=== PATIENT | female | born 1950 | race American Indian/Alaskan Native ===

== ENCOUNTER 2016-04-22 16:54 | Emergency (ER) | payer SELFPAY ==
[2016-04-22 19:29] VITALS: BP 159/79
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
[2016-04-22 20:59] LABS: Hematocrit 41.7 % (30.3-42.9); Hemoglobin 13.8 gm/dl (10.1-14.3); Mean Corpuscular HGB Conc 33 % (30-34); Mean Corpuscular Hemoglobin 28 pg (28-32); Mean Corpuscular Volume 85 fl (79-97); Platelet Count 371 K/mm3 (140-440); Red Blood Count 4.93 M/mm3 (3.65-5.03); White Blood Count 6.9 K/mm3 (4.5-11.0)
[2016-04-22 21:17] LABS: Anion Gap 16 mmol/L; BUN/Creatinine Ratio 18.33; Blood Urea Nitrogen 11 mg/dL (7-17); Calcium 9.1 mg/dL (8.4-10.2); Carbon Dioxide 25 mmol/L (22-30); Chloride 106.1 mmol/L (98-107); Glucose 77 mg/dL (65-100); Potassium 4.6 mmol/L (3.6-5.0); Sodium 142 mmol/L (137-145)
[2016-04-22 22:44] LABS: Urine Drugs of Abuse Note Disclamer
[2016-04-22 23:08] LABS: Bacteria,Urine 1+ /HPF (Negative); Bilirubin,Urine NEG (Negative); Blood,Urine NEG (Negative); Ketones,Urine NEG (Negative); Leukocyte Esterase,Urine SM (Negative); Mucus,Urine FEW /HPF; Nitrite,Urine NEG (Negative); Protein,Urine <15 mg/dL mg/dL (Negative); Urobilinogen,Urine < 2.0 mg/dL (<2.0)
== END 2016-04-22 23:33 | disposition home or self-care (01) ==
LOC: ED 16:54
DX: M54.6 Pain in thoracic spine (principal); I10 Essential (primary) hypertension; Z88.5 Allergy status to narcotic agent
CPT/HCPCS: 36415; 80048; 80307; 81001; 85027; 99283

== ENCOUNTER 2020-04-28 00:31 | Emergency (ER) | payer MEDICARE ==
[2020-04-28 01:37] LABS: Basophils # (Auto) 0.1 K/mm3 (0.0-0.1); Eosinophils # (Auto) 0.2 K/mm3 (0.0-0.4); Eosinophils % (Auto) 2.4 % (0.0-4.3); Hematocrit 38.9 % (30.3-42.9); Hemoglobin 12.8 gm/dl (10.1-14.3); Lymphocytes # (Auto) 2.9 K/mm3 (1.2-5.4); Lymphocytes % (Auto) 40.5 % (13.4-35.0); Mean Corpuscular HGB Conc 33 % (30-34); Mean Corpuscular Volume 83 fl (79-97); Monocytes # (Auto) 0.5 K/mm3 (0.0-0.8); Platelet Count 410 K/mm3 (140-440); Red Blood Count 4.67 M/mm3 (3.65-5.03); Red Cell Distribution Width 13.5 % (13.2-15.2)
--- NOTE | 2020-04-28 01:37 | XRay Report ---
CHEST 1 VIEW 04/28/2020 1:30 AM INDICATION / CLINICAL INFORMATION: Chest Pain. COMPARISON: 06/20/2015 FINDINGS: SUPPORT DEVICES: None. HEART / MEDIASTINUM: No significant abnormality. LUNGS / PLEURA: No significant pulmonary or pleural abnormality. No pneumothorax. ADDITIONAL FINDINGS: No significant additional findings. IMPRESSION: 1. No acute findings. Signer Name: Alejandro Redd MD Signed: 04/28/2020 1:33 AM Workstation Name: [id number]
[2020-04-28 01:44] LABS: Blood Urea Nitrogen 15 mg/dL (7-17); Calcium 8.7 mg/dL (8.4-10.2); Hemolysis Index 9
[2020-04-28 01:47] LABS: BUN/Creatinine Ratio 21
--- NOTE | 2020-04-28 04:25 | Cat Scan Report ---
CT HEAD WITHOUT CONTRAST INDICATION / CLINICAL INFORMATION: Pt complains of numbness to face and leg. TECHNIQUE: All CT scans at this location are performed using CT dose reduction for ALARA by means of automated exposure control. COMPARISON: None available. FINDINGS: HEMORRHAGE: None. EXTRA-AXIAL SPACES: Normal in size and morphology for the patient's age. VENTRICULAR SYSTEM: Normal in size and morphology for the patient's age. CEREBRAL PARENCHYMA: No significant abnormality. No acute territorial infarct. MIDLINE SHIFT / HERNIATION: None. CEREBELLUM / BRAINSTEM: No significant abnormality. ORBITS: Normal as visualized. SOFT TISSUES: No significant abnormality. SKULL: No significant abnormality. PARANASAL SINUSES / MASTOID AIR CELLS: Normal as visualized. ADDITIONAL FINDINGS: None. IMPRESSION: 1. No acute intracranial abnormality. Signer Name: Alejandro Redd MD Signed: 04/28/2020 4:21 AM Workstation Name: [id number]
[2020-04-28 06:50] VITALS: BP 150/71
[2020-04-28] MEDS ORDERED: ASPIRIN 325 MG TAB PO ONE (09:03)
--- NOTE | 2020-04-28 09:05 | Emergency Department Report ---
ED General Adult HPI - General Chief complaint: Neuro Symptoms/Deficit Stated complaint: NUMBNESS ON LT SIDE SLIGHT HEADACHE Time Seen by Provider: 04/28/20 08:19 Source: patient Mode of arrival: Ambulatory Limitations: No Limitations - History of Present Illness Initial comments: Patient is a 70-year-old hypertensive female who presents to the emergency department for evaluation of abrupt onset of paresthesias to her left lips, left hand, and left rodriguez all beginning at approximately 6:54 PM last night. Patient denies any headache, denies associated limb weakness, denies any difficulty understanding speech, denies any difficulty speaking or walking. Patient denies visual disturbance or visual symptoms. Patient denies history of hypercholester olemia or diabetes, denies history of stroke. Patient denies chest pain, denies shortness of breath. Severity scale (0 -10): 0 - Related Data Previous Rx's Medication Instructions Recorded Last Taken Type cloNIDine [Catapres] 0.1 mg PO QDAY #30 tablet 09/30/13 06/19/15 22:00 Rx oxyCODONE /ACETAMINOPHEN [Percocet 1 tab PO Q6H PRN #30 tablet 06/23/15 Unknown Rx 5/325 mg] Allergies Allergy/AdvReac Type Severity Reaction Status Date / Time codeine AdvReac Headache Verified 04/21/13 10:31 ED Review of Systems ROS: Stated complaint: NUMBNESS ON LT SIDE SLIGHT HEADACHE Other details as noted in HPI Comment: All other systems reviewed and negative ED Past Medical Hx - Past Medical History Previous Medical History?: Yes Hx Hypertension: Yes (clonidine on hold) Hx Heart Attack/AMI: No Hx Congestive Heart Failure: No Hx Diabetes: No Hx Deep Vein Thrombosis: No Hx Pulmonary Embolism: No Hx Liver Disease: No Hx Renal Disease: No Hx Sickle Cell Disease: No Hx Arthritis: No Hx Headaches / Migraines: No Hx Seizures: No Hx Kidney Stones: No Hx Asthma: No Hx COPD: No Hx Tuberculosis: No Hx Dementia: No Hx HIV: No Additional medical history: States took a water pill before but she tolerated well. - Surgical History Hx Coronary Stent: No Hx Pacemaker: No Hx Internal Defibrillator: No Hx Cholecystectomy: Yes Additional Surgical History: Tubal ligation - Social History Smoking Status: Never Smoker Substance Use Type: None - Medications Home Medications: Home Medications Medication Instructions Recorded Confirmed Last Taken Type cloNIDine [Catapres] 0.1 mg PO QDAY #30 tablet 09/30/13 06/20/15 06/19/15 22:00 Rx oxyCODONE /ACETAMINOPHEN [Percocet 1 tab PO Q6H PRN #30 tablet 06/23/15 Unknown Rx 5/325 mg] ED Physical Exam - General Limitations: No Limitations General appearance: alert, in no apparent distress - Head Head exam: Present: atraumatic, normocephalic - Eye Eye exam: Present: normal appearance - ENT ENT exam: Present: mucous membranes moist - Neck Neck exam: Present: normal inspection - Respiratory Respiratory exam: Present: normal lung sounds bilaterally. Absent: respiratory distress - Cardiovascular Cardiovascular Exam: Present: regular rate, normal rhythm. Absent: systolic murmur, diastolic murmur, rubs, gallop - GI/Abdominal GI/Abdominal exam: Present: soft, normal bowel sounds - Extremities Exam Extremities exam: Present: normal inspection - Back Exam Back exam: Present: normal inspection - Neurological Exam Neurological exam: Present: alert, oriented X3, CN II-XII intact, normal gait, reflexes normal - Expanded Neurological Exam Expanded Patient oriented to: Present: person, place, time Speech: Present: fluid speech Cranial nerves: EOM's Intact: Normal, Tongue Deviation: Normal, Nystagmus: Normal, Facial Sensation: Normal Cerebellar function: Finger to Nose: Normal, Heel to Rodriguez: Normal Upper motor neuron: Jaguar Neglect: Normal, Pronator Drift: Normal, Sensory Extinction: Normal Sensory exam: Upper Extremity Light Touch: Normal, Lower Extremity Light Touch: Normal Motor strength exam: RUE: 5, LUE: 5, RLE: 5, LLE: 5 Best Eye Response ([place]): (4) open spontaneously Best Motor Response (Barron): (6) obeys commands Best Verbal Response ([place]): (5) oriented Barron Total: 15 - Psychiatric Psychiatric exam: Present: normal affect, normal mood - Skin Skin exam: Present: warm, dry, intact, normal color. Absent: rash ED Course Vital Signs 04/28/20 04/28/20 04/28/20 00:51 06:47 08:51 Temperature 99.0 F Pulse Rate 99 H 83 Respiratory 17 16 20 Rate Blood Pressure 186/84 150/71 O2 Sat by Pulse 97 99 Oximetry - Reevaluation(s) Reevaluation #1: 04/28/20 09:37 Patient seen following extended wait in emergency department waiting room with negative CT head, negative EKG, negative lab work. Patient is advised symptoms may be suggestive of posterior stroke, consequently CTA head and neck and neurologic consultation will be obtained. Patient refuses, states she would prefer to follow-up with her primary care physician and have any further tests ordered by him. Patient advised complaint may be time sensitive, cannot exclude large vessel occlusion, explained patient may be candidate for neurologic intervention as she presents greater than 4.5 hours but less than 24 hours after onset of symptoms. Patient aware she may be having ongoing CVA, prefers to sign out AGAINST MEDICAL ADVICE nonetheless. Patient is advised she may have worsening deficit, may have permanent neurologic deficit, undiagnosed neurologic or cardiac disorder. Patient advised definitive diagnosis cannot be made given incomplete work-up, is again advised to remain in the hospital. Patient again refuses, noting her daughter will make her an appointment with primary care doctor. Patient is advised refusal may result in worsening outcome, including but not limited to permanent disability and/or , patient accepts risks and again request to leave the hospital. Patient given aspirin 325 mg p.o. x1 prior to discharge and advised to return to the emergency department at any point for completion of work-up. ED Medical Decision Making - Lab Data Result diagrams: 04/28/20 01:11 04/28/20 01:11 Vital Signs 04/28/20 04/28/20 04/28/20 00:51 06:47 08:51 Temperature 99.0 F Pulse Rate 99 H 83 Respiratory 17 16 20 Rate Blood Pressure 186/84 150/71 O2 Sat by Pulse 97 99 Oximetry Labs 04/28/20 04/28/20 04/28/20 01:11 01:11 03:58 WBC 7.0 RBC 4.67 Hgb 12.8 Hct 38.9 MCV 83 MCH 27 L MCHC 33 RDW 13.5 Plt Count 410 Lymph % (Auto) 40.5 H Barron % (Auto) 7.0 Eos % (Auto) 2.4 Baso % (Auto) 1.0 Lymph # (Auto) 2.9 Barron # (Auto) 0.5 Eos # (Auto) 0.2 Baso # (Auto) 0.1 Seg Neutrophils % 49.1 Seg Neutrophils # 3.5 Sodium 140 Potassium 3.9 Chloride 106.6 Carbon Dioxide 24 Anion Gap 13 BUN 15 Creatinine 0.7 Estimated GFR > 60 BUN/Creatinine Ratio 21 Glucose 106 H Calcium 8.7 Troponin T < 0.010 < 0.010 - EKG Data -: EKG Interpreted by Me (Sinus rhythm at 87, no ST-T changes, normal QRS) - Radiology Data Radiology results: report reviewed Referring Physician: ABBIE JEROME Patient Name: PITO KHAN Date of : 1950 Sex: Female Report Date: 2020-04-28 Report Status: Finalized [facility] [address] [place] [address] Cat Scan Report Signed Patient: PITO KHAN MR#: [id number] 124 : 1950 Acct:[id number] Age/Sex: 70 / F ADM Date: 04/28/20 Loc: ED Attending Dr: Ordering Physician: STEFANIE CONTI Date of Service: 04/28/20 Procedure(s): CT head/brain wo con Accession Number(s): [id number] cc: STEFANIE CONTI CT HEAD WITHOUT CONTRAST INDICATION / CLINICAL INFORMATION: Pt complains of numbness to face and leg. TECHNIQUE: All CT scans at this location are performed using CT dose reduction for ALARA by means of automated exposure control. COMPARISON: None available. FINDINGS: HEMORRHAGE: None. EXTRA-AXIAL SPACES: Normal in size and morphology for the patient's age. VENTRICULAR SYSTEM: Normal in size and morphology for the patient's age. CEREBRAL PARENCHYMA: No significant abnormality. No acute territorial infarct. MIDLINE SHIFT / HERNIATION: None. CEREBELLUM / BRAINSTEM: No significant abnormality. ORBITS: Normal as visualized. SOFT TISSUES: No significant abnormality. SKULL: No significant abnormality. PARANASAL SINUSES / MASTOID AIR CELLS: Normal as visualized. ADDITIONAL FINDINGS: None. IMPRESSION: 1. No acute intracranial abnormality. Signer Name: Alejandro Redd MD Signed: 04/28/2020 4:21 AM Workstation Name: [id number] Transcribed By: Dictated By: Alejandro Redd MD Electronically Authenticated By: Alejandro Redd MD Signed Date/Time: 04/28/20420 DD/ 7 TD/TT: Chest x-ray negative per radiology Critical Care Time: No Critical care attestation.: If time is entered above; I have spent that time in minutes in the direct care of this critically ill patient, excluding procedure time. ED Disposition Clinical Impression: Paresthesias Disposition: DC-07 LEFT AGAINST MED ADVICE Is pt being admited?: No Condition: Stable Instructions: Paresthesia Additional Instructions: Follow-up with primary care doctor immediately as you are leaving the hospital AGAINST MEDICAL ADVICE. Please note you possibly have ongoing neurologic disorder including but not limited to acute stroke which you may benefit from acute therapy and further evaluation including CTA head and neck, MRI brain, carotid ultrasound, and neurologic evaluation, all were discussed with you in person. Please note the risks of refusing further evaluation and admission to the hospital include but are not limited to permanent neurologic deficit, permanent disability, and/or . Please return to the emergency department at any point for further evaluation and to continue ongoing work-up. Referrals: ONEAL MENDOZA MD [Primary Care Provider] - 3-5 Days - Level of Consciousness 1a. Level of Consciousness: alert/keenly responsive - LOC Questions 1b. LOC Questions: answers both correctly - LOC Command 1c. LOC Commands: performs tasks correctly - Best Gaze 2. Best Gaze: normal - Visual 3. Visual: no visual loss - Facial Palsy 4. Facial Palsy: normal symmetrical movement - Motor Arm 5a. Motor Arm Left: no drift 5b. Motor Arm Right: no drift - Motor Leg 6a. Motor Leg Left: no drift 6b. Motor Leg Right: no drift - Limb Ataxia 7. Limb Ataxia: absent - Sensory 8. Sensory: normal - Best Language 9. Best Language: no aphasia - Dysarthria 10. Dysarthria: normal - Extinction and Inattention 11. Extinction/Inattention: no abnormality - Scoring Total Score: 0 Stroke Severity: No Stroke Symptoms
== END 2020-04-28 09:45 | disposition left against medical advice (07) ==
LOC: ED 00:31
DX: R20.2 Paresthesia of skin (principal); I10 Essential (primary) hypertension; Z79.899 Other long term (current) drug therapy; Z98.51 Tubal ligation status; Z90.49 Acquired absence of other specified parts of digestive tract; Z88.6 Allergy status to analgesic agent
CPT/HCPCS: 36415; 70450; 71045; 80048; 84484; 85025; 93005

== ENCOUNTER 2020-07-31 14:22 | Emergency (ER) | payer MEDICARE ==
--- NOTE | 2020-07-31 14:39 | Event Note ---
ED Screening Note Date of service: 07/31/20 Time: 14:38 ED Screening Note: Patient complains of episode of rapid heart beat and dizziness today Denies chest pain or shortness of breath No past heart history per patient No headache This initial assessment/diagnostic orders/clinical plan/treatment(s) is/are subject to change based on patients health status, clinical progression and re- assessment by fellow clinical providers in the ED. Further treatment and workup at subsequent clinical providers discretion. Patient/guardian urged not to elope from the ED as their condition may be serious if not clinically assessed and managed. Initial orders include: Labs EKG chest x-ray
[2020-07-31 14:43] VITALS: BP 178/103
[2020-07-31 15:28] LABS: Basophils % (Auto) 0.8 % (0.0-1.8); Eosinophils # (Auto) 0.1 K/mm3 (0.0-0.4); Hematocrit 43.6 % (30.3-42.9); Hemoglobin 14.2 gm/dl (10.1-14.3); Lymphocytes # (Auto) 1.7 K/mm3 (1.2-5.4); Lymphocytes % (Auto) 30.4 % (13.4-35.0); Mean Corpuscular HGB Conc 33 % (30-34); Mean Corpuscular Volume 85 fl (79-97); Monocytes # (Auto) 0.5 K/mm3 (0.0-0.8); Monocytes % (Auto) 8.5 % (0.0-7.3); Platelet Count 403 K/mm3 (140-440); Red Blood Count 5.12 M/mm3 (3.65-5.03); Red Cell Distribution Width 13.7 % (13.2-15.2)
--- NOTE | 2020-07-31 15:46 | XRay Report ---
CHEST 2 VIEWS INDICATION / CLINICAL INFORMATION: palpitations. COMPARISON: 04/28/2020 FINDINGS: SUPPORT DEVICES: None. HEART / MEDIASTINUM: No significant abnormality. LUNGS / PLEURA: No significant pulmonary or pleural abnormality. No pneumothorax. ADDITIONAL FINDINGS: No significant additional findings. IMPRESSION: 1. No acute findings. Signer Name: Juan Carlos Rodríguez MD Signed: 07/31/2020 3:42 PM Workstation Name: [id number]
[2020-07-31 15:54] LABS: Alanine Aminotransferase 25 units/L (7-56); Blood Urea Nitrogen 8 mg/dL (7-17); Calcium 9.1 mg/dL (8.4-10.2); Hemolysis Index 30
[2020-07-31 15:55] LABS: BUN/Creatinine Ratio 11
[2020-07-31 16:07] LABS: Chol/HDL Ratio 3.06 %; HDL Cholesterol 66 mg/dL (40-59); LDL Cholesterol,Direct 137 mg/dL (50-130)
[2020-07-31 20:05] LABS: Bilirubin,Urine NEG (Negative); Blood,Urine NEG (Negative); Color,Urine Straw (Yellow); Protein,Urine <15 mg/dL mg/dL (Negative)
[2020-07-31 20:13] LABS: Mucus,Urine FEW /HPF
== END 2020-07-31 21:00 | disposition left against medical advice (07) ==
LOC: ED 14:22
DX: R42 Dizziness and giddiness (principal); R00.0 Tachycardia, unspecified; Z53.21 Procedure and treatment not carried out due to patient leaving prior to being seen by health care provider
CPT/HCPCS: 36415; 71046; 80053; 80061; 81001; 84484; 85025; 93005

== ENCOUNTER 2020-10-02 14:26 | Observation (INO) | payer MEDICARE ==
[2020-10-02] MEDS ORDERED: hydrALAZINE 20 MG/1 ML INJ IV ONE (14:50)
[2020-10-02] MEDS ORDERED: SODIUM CHLORIDE 0.9% 500 ML 500 ML IV ONE (14:52)
--- NOTE | 2020-10-02 14:59 | Emergency Department Report ---
HPI - General Chief Complaint: Weakness Time Seen by Provider: 10/02/20 14:41 - HPI HPI: 70-year-old female with history of hypertension brought in by EMS complaining of intermittent episodes of shortness of breath since noon today. The patient states that since noon she has had intermittent episodes where she feels short of breath lasting only seconds at a time. There are no other associated symptoms during these episodes and no preceding symptoms. She denies experiencing any chest pain, headache, vision change, nausea/vomiting, sweating, cough, fever, abdominal pain, dysuria, focal weakness, sensory changes, or any other complaints. According to the EMS report, the patient was found to be profoundly bradycardic with a heart rate in the 40s and hypotensive with blood pressure in the 200s systolic. Patient states that she is compliant with all of her blood pressure medications. At this time she does not feel short of breath and has no other symptoms. ED Past Medical Hx - Past Medical History Hx Hypertension: Yes (clonidine on hold) Hx Heart Attack/AMI: No Hx Congestive Heart Failure: No Hx Diabetes: No Hx Deep Vein Thrombosis: No Hx Pulmonary Embolism: No Hx Liver Disease: No Hx Renal Disease: No Hx Sickle Cell Disease: No Hx Arthritis: No Hx Headaches / Migraines: No Hx Seizures: No Hx Kidney Stones: No Hx Asthma: No Hx COPD: No Hx Tuberculosis: No Hx Dementia: No Hx HIV: No Additional medical history: States took a water pill before but she tolerated well. - Surgical History Hx Coronary Stent: No Hx Pacemaker: No Hx Internal Defibrillator: No Hx Cholecystectomy: Yes Additional Surgical History: Tubal ligation - Social History Smoking Status: Unknown if ever smoked - Medications Home Medications: Home Medications Medication Instructions Recorded Confirmed Last Taken Type cloNIDine [Catapres] 0.1 mg PO QDAY #30 tablet 09/30/13 06/20/15 06/19/15 22:00 Rx oxyCODONE /ACETAMINOPHEN [Percocet 1 tab PO Q6H PRN #30 tablet 06/23/15 Unknown Rx 5/325 mg] ED Review of Systems ROS: Stated complaint: weakness Other details as noted in HPI Constitutional: denies: chills, fever Eyes: denies: eye pain, vision change ENT: denies: throat pain, congestion Respiratory: shortness of breath. denies: cough Cardiovascular: denies: chest pain, palpitations Endocrine: denies: flushing Gastrointestinal: denies: abdominal pain, nausea, vomiting Genitourinary: denies: dysuria, frequency Musculoskeletal: denies: back pain, myalgia Skin: denies: rash Neurological: denies: headache, weakness, numbness Psychiatric: denies: anxiety Physical Exam - Physical Exam Vital Signs: Vital Signs 10/02/20 10/02/20 14:35 14:45 Temperature 97.9 F Pulse Rate 44 L 44 L Respiratory 16 Rate Blood Pressure 224/98 O2 Sat by Pulse 99 Oximetry General: GENERAL: Well developed and well nourished. No acute distress HEENT: Normocephalic. No obvious signs of trauma. Very dry mucous membranes. EYES: Extraocular movements are intact. Pupils are equal round and reactive to light bilaterally NECK: Supple. Trachea is midline. LUNGS: Nonlabored breathing. Equal chest rise bilaterally. Clear to auscultation bilaterally. HEART/CARDIOVASCULAR: Regular rate and rhythm. No murmurs or rubs. VASCULAR: 2+ peripheral pulses. Cap refill < 2 seconds. 1+ pitting edema bilateral lower extremities ABDOMEN: Abdomen is soft and nondistended. There is no significant tenderness, guarding or rebound. SKIN: Skin is warm and dry NEURO: Patient is awake, alert, and oriented. podiatric medicine professor II-XII grossly intact. No focal deficits. Normal motor and sensory exam throughout. Normal speech. Normal gait. MUSCULOSKELETAL: No obvious deformities. No significant tenderness. Normal ROM throughout. ED Course Vital Signs 10/02/20 10/02/20 14:35 14:45 Temperature 97.9 F Pulse Rate 44 L 44 L Respiratory 16 Rate Blood Pressure 224/98 O2 Sat by Pulse 99 Oximetry ED Medical Decision Making - Lab Data Result diagrams: 10/02/20 15:09 10/02/20 15:09 - EKG Data -: EKG Interpreted by Ca - EKG Data 10/02/20 16:58 Sinus bradycardia. Normal axis. Normal intervals. No ectopy. No significant ST segment or T wave abnormalities. - Radiology Data CHEST 1 VIEW 10/02/2020 2:24 PM INDICATION / CLINICAL INFORMATION: sob. COMPARISON: None available. FINDINGS: SUPPORT DEVICES: None. HEART / MEDIASTINUM: No significant abnormality. LUNGS / PLEURA: Mild increased pulmonary vascularity No pneumothorax. ADDITIONAL FINDINGS: No significant additional findings. IMPRESSION: 1. No acute findings. Signer Name: Roge Garrett MD Signed: 10/02/2020 2:25 PM Workstation Name: [id number] - Medical Decision Making 70-year-old female with history of hypertension compliant with medications presenting for shortness of breath since noon today. The sepsis have been intermittent. When seen by EMS, she was noted to be profoundly bradycardic and hypertensive. Upon arrival to the emergency department the patient's blood pressure was 225/100. Her heart rate was in the low 40s. Lung sounds are clear. Heart sounds are normal. She does have very dry mucous membranes. We will perform broad work-up with a full set of labs and chest x-ray. We will continue to monitor her closely. We will administer 1 L of IV fluids and 10 mg of IV hydralazine and monitor closely. On repeat assessment at 4:50 PM, patient is resting comfortably in the bed. She reports no further episodes of shortness of breath. Her blood pressure is improved to the 170s systolic. Labs have resulted and reveal no significant leukocytosis or anemia. There are no significant electrolyte abnormalities. Kidney function is normal. Troponin is negative. BNP is within normal range. TSH is normal. Nevertheless, given the patient's extreme hypertension with symptoms which could be patient access representative of hypertensive urgency/emergency, we will speak to the hospitalist regarding admission. At 4:55 PM, I spoke with Dr. Ferrer regarding the patient's case and he accepts the patient for admission. He will assume care. Critical Care Time: Yes (35 mins) Critical care time in (mins) excluding proc time.: 35 Critical care attestation.: If time is entered above; I have spent that time in minutes in the direct care of this critically ill patient, excluding procedure time. Critical care time was spent in the assessment, work-up, and management of severe hypertensive urgency requiring initiation of IV antihypertensives as well as bradycardia requiring close monitoring and frequent reassessment. ED Disposition Clinical Impression: Hypertensive urgency, Bradycardia, Shortness of breath Disposition: OP ADMIT IP TO THIS HOSP Is pt being admited?: Yes Condition: Stable
[2020-10-02 15:20] LABS: Bilirubin,Urine NEG (Negative); Blood,Urine NEG (Negative); Color,Urine Yellow (Yellow); Mucus,Urine FEW /HPF; Protein,Urine <15 mg/dL mg/dL (Negative)
[2020-10-02 15:23] LABS: Basophils # (Auto) 0.1 K/mm3 (0.0-0.1); Eosinophils # (Auto) 0.3 K/mm3 (0.0-0.4); Eosinophils % (Auto) 4.4 % (0.0-4.3); Hematocrit 39.6 % (30.3-42.9); Lymphocytes # (Auto) 2.4 K/mm3 (1.2-5.4); Lymphocytes % (Auto) 31.4 % (13.4-35.0); Mean Corpuscular HGB Conc 33 % (30-34); Mean Corpuscular Volume 85 fl (79-97); Monocytes # (Auto) 0.5 K/mm3 (0.0-0.8); Monocytes % (Auto) 6.7 % (0.0-7.3); Platelet Count 323 K/mm3 (140-440); Red Blood Count 4.66 M/mm3 (3.65-5.03); Red Cell Distribution Width 13.6 % (13.2-15.2)
--- NOTE | 2020-10-02 15:29 | XRay Report ---
CHEST 1 VIEW 10/02/2020 2:24 PM INDICATION / CLINICAL INFORMATION: sob. COMPARISON: None available. FINDINGS: SUPPORT DEVICES: None. HEART / MEDIASTINUM: No significant abnormality. LUNGS / PLEURA: Mild increased pulmonary vascularity No pneumothorax. ADDITIONAL FINDINGS: No significant additional findings. IMPRESSION: 1. No acute findings. Signer Name: Roge Garrett MD Signed: 10/02/2020 3:25 PM Workstation Name: [email or web address]
[2020-10-02 15:36] LABS: Partial Thromboplastin Time 30.7 Sec. (24.2-36.6)
[2020-10-02 15:47] LABS: Alanine Aminotransferase 32 units/L (7-56); Albumin 3.7 g/dL (3.9-5); Blood Urea Nitrogen 10 mg/dL (7-17); Calcium 8.8 mg/dL (8.4-10.2); Hemolysis Index 16
[2020-10-02 15:55] LABS: BUN/Creatinine Ratio 17; Bilirubin,Direct < 0.2 mg/dL (0-0.2)
[2020-10-02] MEDS ORDERED: SODIUM CHLORIDE 0.9% 1000 ML 1,000 ML IV ONE (16:49)
[2020-10-02 20:05] VITALS: BP 170/79
--- NOTE | 2020-10-02 20:37 | History and Physical Report ---
History of Present Illness Date of examination: 10/02/20 Date of admission: 10/02/20 17:00 History of present illness: 70-year-old female with history of hypertension brought in by EMS complaining of intermittent episodes of shortness of breath since noon today. The patient states that since noon she has had intermittent episodes where she feels short of breath lasting only seconds at a time. There are no other associated symptoms during these episodes and no preceding symptoms. She denies experiencing any chest pain, headache, vision change, nausea/vomiting, sweating, cough, fever, abdominal pain, dysuria, focal weakness, sensory changes, or any other complaints. According to the EMS report, the patient was found to be profoundly bradycardic with a heart rate in the 40s and hypotensive with blood pressure in the 200s systolic. Patient states that she is compliant with all of her blood pressure medications. At this time she does not feel short of breath and has no other symptoms. ED Past Medical Hx - Past Medical History Hx Hypertension: Yes (clonidine on hold) Hx Heart Attack/AMI: No Hx Congestive Heart Failure: No Hx Diabetes: No Hx Deep Vein Thrombosis: No Hx Pulmonary Embolism: No Hx Liver Disease: No Hx Renal Disease: No Hx Sickle Cell Disease: No Hx Arthritis: No Hx Headaches / Migraines: No Hx Seizures: No Hx Kidney Stones: No Hx Asthma: No Hx COPD: No Hx Tuberculosis: No Hx Dementia: No Hx HIV: No Additional medical history: States took a water pill before but she tolerated well. - Surgical History Hx Coronary Stent: No Hx Pacemaker: No Hx Internal Defibrillator: No Hx Cholecystectomy: Yes Additional Surgical History: Tubal ligation - Social History Smoking Status: Unknown if ever smoked - Medications Home Medications: Home Medications Medication Instructions Recorded Confirmed Last Taken Type cloNIDine [Catapres] 0.1 mg PO QDAY #30 tablet 09/30/13 06/20/15 06/19/15 22:00 Rx oxyCODONE /ACETAMINOPHEN [Percocet 1 tab PO Q6H PRN #30 tablet 06/23/15 Unknown Rx 5/325 mg] ED Review of Systems ROS: Stated complaint: weakness Other details as noted in HPI Constitutional: denies: chills, fever Eyes: denies: eye pain, vision change ENT: denies: throat pain, congestion Respiratory: shortness of breath. denies: cough Cardiovascular: denies: chest pain, palpitations Endocrine: denies: flushing Gastrointestinal: denies: abdominal pain, nausea, vomiting Genitourinary: denies: dysuria, frequency Musculoskeletal: denies: back pain, myalgia Skin: denies: rash Neurological: denies: headache, weakness, numbness Psychiatric: denies: anxiety Physical Exam Medications and Allergies Allergies Allergy/AdvReac Type Severity Reaction Status Date / Time codeine AdvReac Headache Verified 04/21/13 10:31 Home Medications Medication Instructions Recorded Confirmed Last Taken Type cloNIDine [Catapres] 0.1 mg PO QDAY #30 tablet 09/30/13 06/20/15 06/19/15 22:00 Rx oxyCODONE /ACETAMINOPHEN [Percocet 1 tab PO Q6H PRN #30 tablet 06/23/15 Unknown Rx 5/325 mg] Exam - Constitutional Vitals: Temp Pulse Resp BP Pulse Ox 97.9 F 60 20 170/79 98 10/02/20 14:35 10/02/20 20:00 10/02/20 20:00 10/02/20 20:00 10/02/20 20:00 HEART Score - HEART Score Troponin: Troponin T < 0.010 ng/mL (0.00-0.029) 10/02/20 17:18 Results - Labs CBC & Chem 7: 10/02/20 15:09 10/02/20 15:09 Labs: Laboratory Last Values WBC 7.5 K/mm3 (4.5-11.0) 10/02/20 15:09 RBC 4.66 M/mm3 (3.65-5.03) 10/02/20 15:09 Hgb 13.0 gm/dl (10.1-14.3) 10/02/20 15:09 Hct 39.6 % (30.3-42.9) 10/02/20 15:09 MCV 85 fl (79-97) 10/02/20 15:09 MCH 28 pg (28-32) 10/02/20 15:09 MCHC 33 % (30-34) 10/02/20 15:09 RDW 13.6 % (13.2-15.2) 10/02/20 15:09 Plt Count 323 K/mm3 (140-440) 10/02/20 15:09 Lymph % (Auto) 31.4 % (13.4-35.0) 10/02/20 15:09 [place] % (Auto) 6.7 % (0.0-7.3) 10/02/20 15:09 Eos % (Auto) 4.4 % (0.0-4.3) H 10/02/20 15:09 Baso % (Auto) 1.0 % (0.0-1.8) 10/02/20 15:09 Lymph # (Auto) 2.4 K/mm3 (1.2-5.4) 10/02/20 15:09 [place] # (Auto) 0.5 K/mm3 (0.0-0.8) 10/02/20 15:09 Eos # (Auto) 0.3 K/mm3 (0.0-0.4) 10/02/20 15:09 Baso # (Auto) 0.1 K/mm3 (0.0-0.1) 10/02/20 15:09 Seg Neutrophils % 56.5 % (40.0-70.0) 10/02/20 15:09 Seg Neutrophils # 4.3 K/mm3 (1.8-7.7) 10/02/20 15:09 PT 13.7 Sec. (12.2-14.9) 10/02/20 15:09 INR 1.00 (0.87-1.13) 10/02/20 15:09 APTT 30.7 Sec. (24.2-36.6) 10/02/20 15:09 Sodium 139 mmol/L (137-145) 10/02/20 15:09 Potassium 3.7 mmol/L (3.6-5.0) 10/02/20 15:09 Chloride 103.6 mmol/L (98-107) 10/02/20 15:09 Carbon Dioxide 26 mmol/L (22-30) 10/02/20 15:09 Anion Gap 13 mmol/L 10/02/20 15:09 BUN 10 mg/dL (7-17) 10/02/20 15:09 Creatinine 0.6 mg/dL (0.6-1.2) 10/02/20 15:09 Estimated GFR > 60 ml/min 10/02/20 15:09 BUN/Creatinine Ratio 17 % 10/02/20 15:09 Glucose 131 mg/dL (65-100) H 10/02/20 15:09 Calcium 8.8 mg/dL (8.4-10.2) 10/02/20 15:09 Magnesium 1.90 mg/dL (1.7-2.3) 10/02/20 15:09 Total Bilirubin 0.90 mg/dL (0.1-1.2) 10/02/20 15:09 Direct Bilirubin < 0.2 mg/dL (0-0.2) 10/02/20 15:09 Indirect Bilirubin 0.7 mg/dL 10/02/20 15:09 AST 22 units/L (5-40) 10/02/20 15:09 ALT 32 units/L (7-56) 10/02/20 15:09 Alkaline Phosphatase 106 units/L (35-129) 10/02/20 15:09 Troponin T < 0.010 ng/mL (0.00-0.029) 10/02/20 17:18 NT-Pro-B Natriuret Pep 417.5 pg/mL (0-900) 10/02/20 15:09 Total Protein 6.9 g/dL (6.3-8.2) 10/02/20 15:09 Albumin 3.7 g/dL (3.9-5) L 10/02/20 15:09 Albumin/Globulin Ratio 1.2 % 10/02/20 15:09 TSH 3.980 mlU/mL (0.270-4.200) 10/02/20 15:09 Urine Color Yellow (Yellow) 10/02/20 Unknown Urine Turbidity Clear (Clear) 10/02/20 Unknown Urine pH 7.0 (5.0-7.0) 10/02/20 Unknown Ur Specific [place] 1.013 (1.003-1.030) 10/02/20 Unknown Urine Protein <15 mg/dl mg/dL (Negative) 10/02/20 Unknown Urine Glucose (UA) Neg mg/dL (Negative) 10/02/20 Unknown Urine Ketones Neg mg/dL (Negative) 10/02/20 Unknown Urine Blood Neg (Negative) 10/02/20 Unknown Urine Nitrite Neg (Negative) 10/02/20 Unknown Urine Bilirubin Neg (Negative) 10/02/20 Unknown Urine Urobilinogen 2.0 mg/dL (<2.0) 10/02/20 Unknown Ur Leukocyte Esterase Neg (Negative) 10/02/20 Unknown Urine WBC (Auto) 1.0 /HPF (0.0-6.0) 10/02/20 Unknown Urine RBC (Auto) 2.0 /HPF (0.0-6.0) 10/02/20 Unknown U Epithel Cells (Auto) 1.0 /HPF (0-13.0) 10/02/20 Unknown Urine Mucus Few /HPF 10/02/20 Unknown
--- NOTE | 2020-10-08 10:40 | Electrocardiograph Report ---
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 Electronically Signed On 10-08-2020 10:40:08 EDT by Jesus Aranda
== END 2020-10-02 20:48 | disposition left against medical advice (07) ==
LOC: ED 14:26 → 4A 17:00
PROVIDERS: ADMIT Internal Medicine; ATTEND Internal Medicine
DX: I16.0 Hypertensive urgency (principal); R00.1 Bradycardia, unspecified; R06.02 Shortness of breath
CPT/HCPCS: 36415; 71045; 80048; 80076; 81001; 83735; 83880; 84443; 84484; 85025; 85610; 85730; 93005; 96361; 96374; 99291; G0378; J0360

== ENCOUNTER 2021-06-06 19:57 | Emergency (ER) | payer MEDICARE ==
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
[2021-06-06 23:36] LABS: BUN/Creatinine Ratio 18; Blood Urea Nitrogen 16 mg/dL (7-17); Calcium 9.7 mg/dL (8.4-10.2); Hemolysis Index 15
[2021-06-06 23:37] LABS: Basophils # (Auto) 0.1 K/mm3 (0.0-0.1); Basophils % (Auto) 1.1 % (0.0-1.8); Eosinophils # (Auto) 0.2 K/mm3 (0.0-0.4); Eosinophils % (Auto) 1.6 % (0.0-4.3); Hemoglobin 13.3 gm/dl (10.1-14.3); Lymphocytes # (Auto) 3.7 K/mm3 (1.2-5.4); Lymphocytes % (Auto) 36.1 % (13.4-35.0); Mean Corpuscular HGB Conc 32 % (30-34); Mean Corpuscular Volume 84 fl (79-97); Monocytes # (Auto) 0.9 K/mm3 (0.0-0.8); Monocytes % (Auto) 8.6 % (0.0-7.3); Platelet Count 459 K/mm3 (140-440); Red Blood Count 4.89 M/mm3 (3.65-5.03); Red Cell Distribution Width 13.7 % (13.2-15.2)
[2021-06-06 23:53] LABS: Creatine Kinase MB 1.1 ng/mL (0.0-4.0)
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
[2021-06-07 01:12] VITALS: BP 124/73
--- NOTE | 2021-06-07 13:43 | Electrocardiograph Report ---
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
== END 2021-06-07 01:10 | disposition left against medical advice (07) ==
LOC: ED 19:57
DX: S80.02XA Contusion of left knee, initial encounter (principal); S20.219A Contusion of unspecified front wall of thorax, initial encounter; S09.90XA Unspecified injury of head, initial encounter; I10 Essential (primary) hypertension; F07.81 Postconcussional syndrome; Z87.891 Personal history of nicotine dependence; Z90.49 Acquired absence of other specified parts of digestive tract; Y93.89 Activity, other specified; Y92.89 Other specified places as the place of occurrence of the external cause; Y99.8 Other external cause status; V89.2XXA Person injured in unspecified motor-vehicle accident, traffic, initial encounter
CPT/HCPCS: 36415; 70450; 71046; 72125; 80048; 82550; 82553; 84484; 85025; 93005; 99284